=== PATIENT | male | born 1965 | race Caucasian/White ===

== ENCOUNTER → 2021-05-21 | Emergency (ER) | payer SELFPAY ==
[2021-05-21 21:23] LABS: CORONAVIRUS 2019 SARS-COV-2 NEGATIVE (NEGATIVE); INFLUENZA A NAA NEGATIVE (NEGATIVE)
== END | disposition home or self-care (01) ==
LOC: FER 19:53
PROVIDERS: Nurse Practitioner Family
DX: S20.212A Contusion of left front wall of thorax, initial encounter (principal); E11.9 Type 2 diabetes mellitus without complications; Z20.822 Contact with and (suspected) exposure to COVID-19
CPT/HCPCS: 71101; U0002